=== PATIENT | female | born 1950 | race Caucasian/White ===

== ENCOUNTER 2017-04-25 23:05 | Emergency (ER) | payer MEDICARE ==
[~2017-04-25] VITALS: Ht 157.5 cm; Wt 65.8 kg
[2017-04-25 23:05] VITALS: BP_SYST 160
--- NOTE | 2017-04-25 23:05 | NUR ---
PT BROUGHT IN TO BED 5 REPORT GIVEN TO KAYCEE
--- NOTE | 2017-04-25 23:20 | NUR ---
PT BROUGHT IN VIA AMBULANCE FROM [facility] WITH A COMPLAINT OF CHEST AND BACK PAIN. BLOOD PRESSURE IS SYSTOLIC ON THE 190'S. PT REFUSED TO ANSWER QUESTIONS AND ORDERED LABS, RADIOLOGY, MEDICATIONS. UNABLE TO ASSESS HISTORY. HAS SITTER AT BEDSIDE. SAFETY PRECAUTION OBSERVED. WILL CONTINUE TO MONITOR PT.
[2017-04-25] MEDS ORDERED: ASPIRIN 325 MG TABLET PO ONE (23:30)
[2017-04-25] MEDS ORDERED: NITROGLYCERIN 0.4 MG TAB.SUBL SL ONE (23:30)
--- NOTE | 2017-04-25 23:30 | NUR ---
ER MD SCHWARTZ AT BEDSIDE FOR MEDICAL EVALUATION
[2017-04-26] MEDS ORDERED: HALOPERIDOL LACTATE 5 MG/ML VIAL IM ONE (00:30)
[2017-04-26] MEDS ORDERED: hydrALAZINE HCL 20 MG/ML VIAL IM ONE (00:30)
--- NOTE | 2017-04-26 01:12 | NUR ---
CALLED [facility] TO LET [facility] KNOW THAT PT IS REFUSING ALL MEDICATION. PT IS CLEARED TO GO BACK TO [facility] IN 30 MINUTES.
--- NOTE | 2017-04-26 01:30 | NUR ---
[facility] ARRIVED TO TRANSFER PATIENT AT 1:30AM.
[2017-04-26 01:45] VITALS: BP_SYST 158
--- NOTE | 2017-04-26 01:45 | NUR ---
Patient to be transferred to [facility]. Receiving facility has accepting physician and available space. ER physician has signed transfer form. Patient or responsible green party has agreed to transfer and signed form. Patient belongings inventoried and will be sent with patient. Copy of nursing notes, lab reports, EKG, Physicians Orders and X-rays to be sent with patient. Report called to [facility] RN at receiving facility. Ambulance service has been called for transfer. ETA is 15 MIN.
== END 2017-04-26 01:45 ==
LOC: SED 23:05
DX: R07.89 Other chest pain (principal); F06.8 Other specified mental disorders due to known physiological condition; Z88.6 Allergy status to analgesic agent
CPT/HCPCS: 93005; 96372; 99285; J0360; J1630